=== PATIENT | female | born 1975 | race Caucasian/White ===

== ENCOUNTER 2018-09-28 12:57 | Emergency (ER) | payer MEDICAID ==
[~2018-09-28] VITALS: Ht 167.6 cm; Wt 88.0 kg
[~2018-09-28 12:57] MED LIST: ARIP5TAB4 PO; ATOM80CA PO; CLIN300C33 PO; CLON0.1T20 PO; FERR220S7 PO; HYDR-4383 PO; INSU100V13 SQ; INSU100V9 SQ
[2018-09-28] MEDS ORDERED: ketorolac trometh. 30mg/ml inj. IV ONE (13:45)
[2018-09-28 14:02] LABS: BASOPHILS % (AUTO) 0.5 % (0-1); EOSINOPHILS # (AUTO) 0.1 X10'3 (0-0.9); EOSINOPHILS % (AUTO) 1.5 % (0-6); HEMATOCRIT 36.7 % (35.0-45.0); HEMOGLOBIN 12.2 g/dl (12.0-16.0); LYMPHOCYTES # (AUTO) 0.9 X10'3 (1.1-4.8); LYMPHOCYTES % (AUTO) 11.5 % (21-51); MEAN CORPUSCULAR HEMOGLOBIN 30.2 PG (27.0-31.0); MEAN CORPUSCULAR HGB CONC 33.1 g/dL (33.0-36.5); MEAN CORPUSCULAR VOLUME 91.3 FL (78-98); MEAN PLATELET VOLUME 8.2 FL (7.4-10.4); MONOCYTES # (AUTO) 0.6 X10'3 (0-0.9); MONOCYTES % (AUTO) 7.1 % (2-12); NEUTROPHILS # (AUTO) 6.2 X10'3 (1.8-7.7); NEUTROPHILS % (AUTO) 79.4 % (42-75); PLATELET COUNT 196 X10'3 (140-440); RED BLOOD COUNT 4.02 X10'6 (4.20-5.60); RED CELL DISTRIBUTION WIDTH 13.8 % (11.5-14.5); WHITE BLOOD COUNT 7.8 X10'3 (4.5-11.0)
[2018-09-28 14:17] LABS: URINE HCG NEGATIVE (NEG)
[2018-09-28 14:21] LABS: ALANINE AMINOTRANSFERASE 23 U/L (12-78); ALBUMIN/GLOBULIN RATIO 0.8 (1.1-1.5); ALKALINE PHOSPHATASE 62 IU/L (46-116); ANION GAP 8 (8-16); ASPARTATE AMINO TRANSFERASE 7 U/L (10-37); BILIRUBIN,TOTAL 0.5 MG/DL (0.1-1.0); BLOOD UREA NITROGEN 13 MG/DL (7-18); BUN/CREATININE RATIO 21.3 (6.6-38.0); CALCIUM 7.9 MG/DL (8.5-10.1); CHLORIDE 107 MMOL/L (99-107); CREATININE 0.61 MG/DL (0.40-0.90); GLUCOSE 106 MG/DL (70-104); POTASSIUM 3.9 MMOL/L (3.5-5.1); SODIUM 145 MMOL/L (135-145); TOTAL CARBON DIOXIDE 29.8 MMOL/L (24-32); TOTAL PROTEIN 6.6 G/DL (6.4-8.2); eGFR > 90 ML/MIN
[2018-09-28 14:23] LABS: CLARITY,URINE CLOUDY (Clear); COLOR,URINE YELLOW (Yellow); GLUCOSE, URINE NEGATIVE (Neg); KETONES,URINE TRACE mg/dl (Neg); LEUKOCYTE ESTERASE ,URINE LARGE (Neg); NITRITES, URINE NEGATIVE (Neg); OCCULT BLOOD,URINE LARGE (Neg); PROTEIN,URINE 100 mg/dl (Neg)
[2018-09-28 14:29] LABS: UA COLLECTION TYPE CLN CATCH MIDSTREAM
[2018-09-28 14:34] LABS: MUCUS STRANDS NONE SEEN /LPF (Neg); SQUAMOUS EPITHELIAL CELL,UR MODERATE /LPF (FEW); TRANSITIONAL EPI CELLS,URINE FEW /HPF; WBC,URINE TNTC /HPF (0-4)
[2018-09-28 14:36] LABS: BACTERIA,URINE 2+ /HPF (Neg); RBC,URINE TNTC /HPF (0-2)
[2018-09-28] MEDS ORDERED: CefTRIAXone 2gm/D5W 50ml 50 ML IV ONE (15:00)
[2018-09-28] MEDS ORDERED: CIPR-230 PO (15:32)
[2018-09-28] MEDS ORDERED: ciprofloxacin 250mg tablet PO ONE (15:35)
--- NOTE | 2018-09-28 15:44 | NUR ---
ADMIN PO ABX, IV ABX INFUSION COMPLETE. PT AMB TO BATHROOM.
[2018-09-28 15:54] VITALS: BP 136/96
[2018-09-28] MEDS ORDERED: acetaminophen 325mg tablet PO ONE ×2 (15:55)
== END 2018-09-28 16:02 | disposition home or self-care (01) ==
LOC: ER 12:57
DX: N39.0 Urinary tract infection, site not specified (principal); R31.9 Hematuria, unspecified; M54.9 Dorsalgia, unspecified; E11.9 Type 2 diabetes mellitus without complications; F15.90 Other stimulant use, unspecified, uncomplicated; Z87.442 Personal history of urinary calculi; Z56.0 Unemployment, unspecified; Z98.890 Other specified postprocedural states; Z88.2 Allergy status to sulfonamides; Z88.5 Allergy status to narcotic agent; Z88.8 Allergy status to other drugs, medicaments and biological substances; Z79.4 Long term (current) use of insulin; Z79.899 Other long term (current) drug therapy
CPT/HCPCS: 36415; 74176; 80053; 81001; 81025; 85025; 87077; 87088; 87186; 96365; 96375; 99284; J0696; J1885

== ENCOUNTER 2021-10-23 11:08 | Inpatient (IN) | payer MEDICAID ==
[~2021-10-23] VITALS: Ht 175.3 cm; Wt 86.4 kg
[~2021-10-23 11:08] MED LIST changes: +ARIP5TAB14 PO; -ARIP5TAB4 PO; +CLON0.1T2 PO; -CLON0.1T20 PO
[2021-10-23 11:58] LABS: CLARITY,URINE SLIGHTLY CLOUDY (Clear); COLOR,URINE YELLOW (Yellow); GLUCOSE, URINE NEGATIVE (Neg); KETONES,URINE NEGATIVE (Neg); LEUKOCYTE ESTERASE ,URINE TRACE (Neg); NITRITES, URINE NEGATIVE (Neg); OCCULT BLOOD,URINE NEGATIVE (Neg); PH,URINE 5.5 (4.8-8.0); PROTEIN,URINE NEGATIVE (Neg)
[2021-10-23 12:03] LABS: URINE HCG NEGATIVE (NEG)
[2021-10-23 12:06] LABS: URINE AMPHETAMINE SCREEN NEGATIVE (Neg); URINE BARBITUATE SCREEN NEGATIVE (Neg); URINE BENZODIAZEPINES SCREEN NEGATIVE (Neg); URINE CANNABINOID SCREEN NEGATIVE (Neg); URINE COCAINE SCREEN NEGATIVE (Neg); URINE METHADONE SCREEN NEGATIVE (Neg); URINE OPIATE SCREEN NEGATIVE (Neg); URINE PHENCYCLIDINE SCREEN NEGATIVE (Neg)
[2021-10-23 12:18] LABS: UA COLLECTION TYPE CLN CATCH MIDSTREAM
[2021-10-23 12:28] LABS: MUCUS STRANDS MODERATE /LPF (Neg); SQUAMOUS EPITHELIAL CELL,UR MANY /LPF (FEW)
[2021-10-23 12:29] LABS: BACTERIA,URINE 1+ /HPF (Neg)
[2021-10-23 12:30] LABS: RBC,URINE 0-2 /HPF (0-2)
[2021-10-23 12:59] LABS: BASOPHILS % (AUTO) 0.3 % (0-1); EOSINOPHILS % (AUTO) 0.6 % (0-6); HEMATOCRIT 38.8 % (35.0-45.0); HEMOGLOBIN 12.7 g/dl (12.0-16.0); LYMPHOCYTES % (AUTO) 17.8 % (21-51); MEAN CORPUSCULAR HEMOGLOBIN 28.5 PG (27.0-31.0); MEAN CORPUSCULAR HGB CONC 32.9 g/dL (33.0-36.5); MEAN CORPUSCULAR VOLUME 86.7 FL (78-98); MONOCYTES # (AUTO) 0.5 X10'3 (0-0.9); MONOCYTES % (AUTO) 9.2 % (2-12); NEUTROPHILS # (AUTO) 3.9 X10'3 (1.8-7.7); NEUTROPHILS % (AUTO) 72.1 % (42-75); PLATELET COUNT 251 X10'3 (140-440); RED BLOOD COUNT 4.47 X10'6 (4.20-5.60); RED CELL DISTRIBUTION WIDTH 13.7 % (11.5-14.5); WHITE BLOOD COUNT 5.4 X10'3 (4.5-11.0)
[2021-10-23 13:17] LABS: ALANINE AMINOTRANSFERASE 41 U/L (12-78); ALBUMIN 3.2 G/DL (3.4-5.0); ALBUMIN/GLOBULIN RATIO 0.8 (1.1-1.5); ALKALINE PHOSPHATASE 66 IU/L (46-116); ANION GAP 8 (8-16); ASPARTATE AMINO TRANSFERASE 21 U/L (10-37); BILIRUBIN,TOTAL 1.1 MG/DL (0.1-1.0); BLOOD UREA NITROGEN 14 MG/DL (7-18); CALCIUM 8.1 MG/DL (8.5-10.1); CHLORIDE 103 MMOL/L (99-107); GLUCOSE 107 MG/DL (70-104); POTASSIUM 3.8 MMOL/L (3.5-5.1); SODIUM 138 MMOL/L (135-145); TOTAL CARBON DIOXIDE 27.1 MMOL/L (24-32); TOTAL PROTEIN 7.4 G/DL (6.4-8.2); eGFR > 90 ML/MIN
[2021-10-23 13:30] LABS: ETHANOL < 0.010 GM/DL (0.0-0.010)
--- NOTE | 2021-10-23 13:43 | NUR ---
Patient transferred to Overflow bed 23. Patient has gone to sleep.
--- NOTE | 2021-10-23 15:03 | NUR ---
Patient woke up and used the restroom, then went back to bed.
--- NOTE | 2021-10-23 15:52 | NUR ---
Patient appears to be sleeping on her right side. Breathing is regular. No s/sx of distress.
[2021-10-23] MEDS: HYDROcodone/acetaminophen 5mg/325mg tablet PO PRN (16:40)
--- NOTE | 2021-10-23 16:48 | NUR ---
Patient appears to be asleep on her left side.
[2021-10-23] MEDS ORDERED: OLANZAPINE 5 MG TABLET PO ONE (18:55)
[2021-10-23] MEDS: cloNIDine 0.1 mg tablet PO SCH (18:59)
--- NOTE | 2021-10-23 19:00 | NUR ---
The patient reports high anxiety with thoughts to harm a peer in the ER. Dr. Ellsworth made aware and orders received.
--- NOTE | 2021-10-23 19:33 | NUR ---
One to one with the patient to assess severity of depressive symptoms and risk to harm herself and others. The patient's anxiety level is very high. She stated she is having thoughts to harm a peer here in the ER. She was asked how her mood was and she stated, "pretty bad" Suicidal thoughts continue. She appears preoccupied by her own internal thoughts but she denied A/V hallucinations currently.
[2021-10-23] MEDS: FERROUS SULFATE 220 MG/5 ML PO SCH (19:59)
[2021-10-23] MEDS ORDERED: CLINDAMYCIN HCL 600 MG PO SCH (20:00)
--- NOTE | 2021-10-23 20:30 | NUR ---
The patient appears to be sleeping
--- NOTE | 2021-10-23 20:42 | NUR ---
Client to be admitted to [facility] for suicidal ideation at 20:[address] Wright. RM 323A.
[2021-10-23] MEDS ORDERED: aripiprazole 5mg tablet PO SCH (21:00)
[2021-10-23] MEDS ORDERED: insulin Lispro (HumaLOG) vial - multi-dose SQ SCH (21:00)
[2021-10-23] MEDS ORDERED: insulin glargine (Lantus) pen - multi-dose SQ SCH (21:00)
--- NOTE | 2021-10-23 21:52 | NUR ---
The patient appears to be sleeping
--- NOTE | 2021-10-24 00:13 | NUR ---
The patient appears to be sleeping
--- NOTE | 2021-10-24 01:23 | NUR ---
The patient appears to be sleeping
--- NOTE | 2021-10-24 03:06 | NUR ---
The patient appears to be sleeping
--- NOTE | 2021-10-24 05:01 | NUR ---
The patient appeared to have slept well during the night
[2021-10-24] MEDS: cloNIDine 0.1 mg tablet PO SCH (08:00)
[2021-10-24] MEDS: FERROUS SULFATE 220 MG/5 ML PO SCH (08:00)
[2021-10-24] MEDS ORDERED: atomoxetine 40 MG capsule PO SCH ×2 (08:21→09:16)
[2021-10-24] MEDS ORDERED: ibuprofen tablet 400 MG TABLET PO ONE (11:35)
[2021-10-24] MEDS: HYDROcodone/acetaminophen 5mg/325mg tablet PO PRN (11:41)
[2021-10-24] MEDS ORDERED: magnesium hydroxide 30ml (MOM) UD suspension PO PRN (11:50)
[2021-10-24] MEDS ORDERED: loperamide 2mg capsule PO PRN (11:50)
[2021-10-24] MEDS ORDERED: mag hydrox/Alum hydrox/simeth 30ml oral suspension PO PRN (11:50)
[2021-10-24] MEDS ORDERED: NICOTINE POLACRILEX 2 MG LOZENGE BC PRN (11:50)
[2021-10-24] MEDS ORDERED: acetaminophen 325mg tablet PO PRN ×2 (11:50)
--- NOTE | 2021-10-24 15:49 | NUR ---
Discharge Planning Received phone call from patient's legal support manager, Paulette Juarez, from [facility]. [phone]. She would like to be notified when Mimi discharges. They have paid for her stay at the [facility] through 10/27, but stated they can extend that stay if needed.
--- NOTE | 2021-10-24 16:47 | NUR ---
ADMIT NOTE: Patient stated that she does not want to live in this world. She expressed a plan to kill herself by taking all her Oxycontin.
--- NOTE | 2021-10-24 18:20 | NUR ---
received report. assumed care.
[2021-10-24 20:00] VITALS: BP 106/69
[2021-10-24] MEDS ORDERED: polyethylene glycol 3350 17gm powd pack PO SCH (21:00)
--- NOTE | 2021-10-25 04:21 | NUR ---
pt spent time in bed. accucheck performed at HS with result of 123. no requests for PRN. stated she wanted to sleep and not talk about anything.
[2021-10-25] MEDS: HYDROcodone/acetaminophen 5mg/325mg tablet PO PRN ×3 (07:34→20:28)
[2021-10-25 08:00] VITALS: BP 126/81
[2021-10-25] MEDS ORDERED: nicotine 21mg patch - 24 hr TD SCH (08:00)
[2021-10-25 08:55] LABS: HEMOGLOBIN A1C 5.6 % (4.5-6.2)
[2021-10-25 08:59] LABS: CHOL/HDL RATIO 5.8 (0.00-4.99); CHOLESTEROL 191 MG/DL (0-200); HDL CHOLESTEROL 33 MG/DL (35-60); LDL CHOLESTEROL 130 MG/DL (50-100); TRIGLYCERIDES 114 MG/DL (20-135)
[2021-10-25] MEDS ORDERED: LORazepam 1 MG tablet PO ONE (14:30)
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
[2021-10-25] MEDS: lurasidone 20mg tablet PO SCH (18:37)
[2021-10-25 19:00] VITALS: BP 104/65
[2021-10-25] MEDS ORDERED: NO HOME MEDS (19:08)
[2021-10-25] MEDS: LORazepam 1 MG tablet PO PRN (20:28)
--- NOTE | 2021-10-26 03:09 | NUR ---
Nursing Progress Note: Problem : Patient stated that she does not want to live in this world. She expressed a plan to kill herself by taking all her OxyContin. Interventions : Introduced self and established rapport, maintained a safe and supportive environment, provided clear and simple instructions, monitored for pain and anxiety and provided intervention, and maintained Q15min safety checks. Response : Received pt. sleeping in bed at the beginning of the shift. This financial underwriter awoke pt. to introduce herself and establish rapport. Pt. is A&O X4. She refused to attend snack and promptly fell back asleep. Pt. later awoke briefly and c/o a headache and anxiety, PRN [place] and Ativan was administered with effectiveness. This financial underwriter was unable to complete 1:1 r/t pt. fatigue and she presents as guarded with conversation. Pt. appears to be sleeping well, will continue to monitor closely. Plan : Pt. requires interruption of current crisis, medication adjustments, and a safe and supportive environment.
[2021-10-26 07:40] VITALS: BP 115/73
[2021-10-26] MEDS: FLUoxetine 10mg capsule PO SCH (08:24)
[2021-10-26] MEDS: LORazepam 1 MG tablet PO PRN ×2 (08:28→15:32)
[2021-10-26] MEDS: HYDROcodone/acetaminophen 5mg/325mg tablet PO PRN ×2 (08:28→15:33)
[2021-10-26] MEDS: ibuprofen tablet 400 MG TABLET PO SCH ×2 (13:20→17:52)
--- NOTE | 2021-10-26 17:23 | NUR ---
Nursing Progress Note: Problem : Patient stated that she does not want to live in this world. She expressed a plan to kill herself by taking all her OxyContin. Interventions : Introduced self and established rapport, maintained a safe and supportive environment, provided clear and simple instructions, monitored for pain and anxiety and provided intervention, and maintained Q15min safety checks. Response : Pt. awoke for breakfast and requesting PRN anxiety and pain medication. Pt. given [place] 5/325 and Ativan 1mg with good effect. Pt. isolated to her room most of the day except to eat meals and shower. 1:1 done at bedside. Pt. denies all psych symptoms and gives minimal, one word responses to this RNs questions. Pt. has low frustration tolerance and becomes easily agitated with questions. Pt. approached RN and for shower, Pt. bouncing her legs rapidly, stating, Im just anxious. When told she had to wait, pt. became frustrated and went back to her room. Pt. did eventually shower. Plan : Pt. requires interruption of current crisis, medication adjustments, and a safe and supportive environment.
[2021-10-26] MEDS: lurasidone 20mg tablet PO SCH (17:52)
[2021-10-26 19:19] VITALS: BP 109/64
--- NOTE | 2021-10-27 02:08 | NUR ---
Nursing Progress Note: Problem: Patient stated that she does not want to live in this world. She expressed a plan to kill herself by taking all her OxyContin. Interventions: Introduced self and established rapport, maintained a safe and supportive environment, provided clear and simple instructions, monitored for pain and anxiety and provided intervention, and maintained Q15min safety checks. Response: Pt asleep at start of shift. Refused to wake up for snack did not want to answer questions and went back to sleep. Plan : Pt. requires interruption of current crisis, medication adjustments, and a safe and supportive environment.
[2021-10-27 07:42] VITALS: BP 133/84
[2021-10-27] MEDS: FLUoxetine 10mg capsule PO SCH (07:57)
[2021-10-27] MEDS: ibuprofen tablet 400 MG TABLET PO SCH (07:57)
[2021-10-27] MEDS: LORazepam 1 MG tablet PO PRN (08:01)
[2021-10-27] MEDS ORDERED: HYDROcodone/acetaminophen 5mg/325mg tablet PO PRN (09:15)
[2021-10-27] MEDS ORDERED: PROZ10C PO (09:53)
[2021-10-27] MEDS ORDERED: LURA20TA PO (09:53)
--- NOTE | 2021-10-27 12:35 | NUR ---
DISCHARGE NOTE: Pt. discharged to [facility], picked up by taxi. Pt. discharged with all belongings and valuables. RN went over discharge paperwork with pt. verbalized understanding of discharge medications, f/u plan, emergency medications (including 911), firearms restriction. Pt. signed all paperwork. Pt. denies SI/HI, A/V hallucinations. Pt. is A&Ox4 and in no apparent distress. Pt. given sandwich upon discharge.
== END 2021-10-27 12:35 | disposition home or self-care (01) | DRG 753 ==
LOC: ER 11:08 → ED HOLD 10-24 09:50 → ADULT MH 10-24 11:45
PROVIDERS: ADMIT Psychiatry & Neurology Psychiatry; ATTEND Psychiatry & Neurology Psychiatry
DX: F31.64 Bipolar disorder, current episode mixed, severe, with psychotic features (principal); F29 Unspecified psychosis not due to a substance or known physiological condition; I50.9 Heart failure, unspecified; R45.851 Suicidal ideations; I11.0 Hypertensive heart disease with heart failure; F15.10 Other stimulant abuse, uncomplicated; F43.12 Post-traumatic stress disorder, chronic; E11.9 Type 2 diabetes mellitus without complications; Z20.822 Contact with and (suspected) exposure to COVID-19; E78.00 Pure hypercholesterolemia, unspecified; S01.81XA Laceration without foreign body of other part of head, initial encounter; X58.XXXA Exposure to other specified factors, initial encounter; E66.3 Overweight; Z59.00 Homelessness unspecified; Z79.4 Long term (current) use of insulin; Z87.442 Personal history of urinary calculi; Z91.410 Personal history of adult physical and sexual abuse; Z56.0 Unemployment, unspecified; Z79.899 Other long term (current) drug therapy; Z88.2 Allergy status to sulfonamides; Z88.5 Allergy status to narcotic agent; Z88.8 Allergy status to other drugs, medicaments and biological substances; Y93.89 Activity, other specified; Y92.89 Other specified places as the place of occurrence of the external cause; Y99.8 Other external cause status; Z68.28 Body mass index [BMI] 28.0-28.9, adult
CPT/HCPCS: 36415; 80053; 80061; 80305; 80320; 81001; 81025; 82948; 83036; 84443; 85025; 87081; 87811; 99285; J1815